=== PATIENT | male | born 1985 | race Caucasian/White ===

== ENCOUNTER 2017-06-27 08:11 | Day surgery (SDC) | payer OTHER ==
[~2017-06-27 08:11] MED LIST: BUPIVACAINE 0.5% PF 30 ML VIAL INFIL ONE
[2017-06-27] MEDS ORDERED: ceFAZolin 2 GM/50 ML 2 GM/50 ML BAG IV ONE (08:29)
[2017-06-27 08:37] VITALS: BP 136/79
[2017-06-27] MEDS ORDERED: LACTATED RINGERS 1,000 ML IV ONE (09:00)
== END 2017-06-27 08:12 | disposition home or self-care (01) ==
LOC: SDS 08:11
PROVIDERS: ATTEND Surgery
DX: Z53.9 Procedure and treatment not carried out, unspecified reason (principal)

== ENCOUNTER 2017-07-18 07:48 | Day surgery (SDC) | payer OTHER ==
[2017-07-18] MEDS ORDERED: ceFAZolin 2 GM/50 ML 2 GM/50 ML BAG IV ONE (08:08)
[2017-07-18] MEDS ORDERED: LACTATED RINGERS 1,000 ML IV ONE ×2 (08:28→11:04)
[2017-07-18] MEDS ORDERED: PROPOFOL 200 MG/20 ML VIAL IVP ONE (09:30)
[2017-07-18] MEDS ORDERED: GLYCOPYRROLATE 1 MG/5 ML VIAL IVP ONE (09:30)
[2017-07-18] MEDS ORDERED: ROCURONIUM 50 MG/5 ML VIAL IVP ONE (09:30)
[2017-07-18] MEDS ORDERED: MIDAZOLAM 2 MG/2 ML VIAL IVP ONE (09:30)
[2017-07-18] MEDS ORDERED: LIDOCAINE-MPF 2% 5 ML VIAL IM ONE (09:30)
[2017-07-18] MEDS ORDERED: ONDANSETRON 4 MG/2 ML VIAL IVP ONE (09:30)
[2017-07-18] MEDS ORDERED: KETOROLAC 30 MG/ML VIAL IVP ONE (09:30)
[2017-07-18] MEDS ORDERED: SUCCINYLCHOLINE 200 MG/10 ML VIAL IVP ONE (09:30)
[2017-07-18] MEDS ORDERED: ePHEDrine 50 MG/ML VIAL IVP ONE (09:30)
[2017-07-18] MEDS ORDERED: NEOSTIGMINE 1 MG/1 ML 10 ML MDV IVP ONE (09:30)
[2017-07-18] MEDS ORDERED: DEXAMETHASONE 4 MG/ML VIAL IVP ONE (09:30)
[2017-07-18] MEDS ORDERED: BUPIVACAINE 0.5% PF 30 ML VIAL SUBQ ONE (09:40)
[2017-07-18] MEDS ORDERED: BUPIVACAINE 0.5% PF 30 ML VIAL INFIL ONE (10:53)
[2017-07-18 12:20] VITALS: BP 128/79
--- NOTE | 2017-07-19 16:21 | OPERATIVE REPORT ---
DATE OF SERVICE: 07/18/2017 Physician: Feng Apodaca MD PREOPERATIVE DIAGNOSIS: Bilateral inguinal hernias. POSTOPERATIVE DIAGOSIS: Bilateral direct inguinal hernias. OPERATIVE PROCEDURE: Laparoscopic Bilateral Inguinal hernia repair. OPERATING SURGEON: Feng Apodaca MD ANESTHESIA TYPE/PROVIDER: General endotracheal anesthesia Dr. Moeller. HISTORY OF PRESENT ILLNESS: The patient is a 32-year-old male who presents with swelling in the groin. On physical exam, he has bilateral reducible inguinal hernias. FINDINGS AT SURGERY: Patient had moderate sized bilateral direct inguinal hernias being present. There did not appear to be an indirect component to them. They are moderate in size. The right side was repaired with Bard large 3DMax mesh, with the left side being smaller and being repaired with Bard large 3DMax lightweight mesh. PROCEDURE: After informed consent was obtained, patient was taken to the operating room and placed in a supine position. General endotracheal anesthesia was administered. Patient's abdomen was then prepped and draped in the usual sterile fashion. Prior to making an abdominal incision, the skin was injected with local anesthesia. An infraumbilical incision was made in the skin using a scalpel. This was carried down to the fascial layer using electrocautery. The fascia was then incised left lateral of the linea alba. A plane was then dissected underneath the rectus muscle. The dissecting balloon was then placed through the incision underneath the rectus muscle and down to the pubic bone. It was then insufflated under direct vision. The balloon was then removed, and a holding balloon was then inserted. The preperitoneal space was then insufflated. A 5 mm port was then placed on either side of the midline below the umbilical trocar. Attention was turned to the left side. The patient was found to have a direct inguinal hernia. The preperitoneal fat was then dissected out of the hernia and off the pubic bone. This dissection was then carried laterally, dissecting the peritoneum off the cord structures and vas deferens to the anterior superior iliac spine. The findings on the right side were the same as him having a direct inguinal hernia. Dissection proceeded as it was done on the left side. Next Bard large 3DMax mesh was then placed in the left myopectineal orifice. The mesh was placed a third below the pubic bone and two thirds above. This covered the direct hernia well. The mesh was then secured to Alli ligament using the Securestrap stapling device. This was done likewise on the left side, except the mesh was Bard large 3DMax lightweight mesh. With the mesh in good position, 10 mL of Marcaine was then squirted over the cord structures bilaterally. The preperitoneal space was then desufflated and, looking at the mesh, it stayed in good position. The ports were then removed. The fascial defect was closed using #0 Vicryl suture. Skin incisions were closed using 4-0 Monocryl subcuticular stitch. Dermabond was then applied. The patient was then awakened, extubated, and taken from the operating room in stable condition. ESTIMATED BLOOD LOSS: Less than 5 mL. COMPLICATIONS: None. CONDITION OF THE PATIENT AT THE END OF PROCEDURE: Stable. SPECIMENS: None. DRAINS AND PACKS: None. CLASSIFICATION OF WOUND: Clean. TD: 07/19/2017 05:34 MTDD
== END 2017-07-18 07:49 | disposition home or self-care (01) ==
LOC: SDS 07:48
PROVIDERS: ATTEND Surgery
PROC: 0YUA4JZ Supplement Bilateral Inguinal Region with Synthetic Substitute, Percutaneous Endoscopic Approach (ICD-10-PCS; principal; 2017-07-18 09:00)
DX: K40.20 Bilateral inguinal hernia, without obstruction or gangrene, not specified as recurrent (principal); F41.9 Anxiety disorder, unspecified; Z87.891 Personal history of nicotine dependence
CPT/HCPCS: 49650; C1781; J0690; J7120